=== PATIENT | female | born 2000 | race American Indian/Alaskan Native ===

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

== ENCOUNTER 2021-02-16 13:40 | Emergency (ER) | payer SELFPAY ==
[2021-02-16 13:47] VITALS: BP 100/50
--- NOTE | 2021-02-16 15:32 | Emergency Department Report ---
Chief Complaint: Abdominal Pain Stated Complaint: STOMACH PAINS VOMITING Time Seen by Provider: 02/16/21 15:24 - HPI History of Present Illness: 20-year-old female presents to the ER today requesting a checkup and also to check for COVID-19. Patient states that she woke up this morning and had one episode of bilious emesis. She states that she has a intermittent cough, but she states that she has had this cough for a long time. She states that she wanted to come get checked out because she lives with her boyfriend who lives with his mom is currently sick with cancer and he wanted to make sure her symptoms were not related to Covid. She also requesting a "checkup for STDs". Patient states that she is having some abdominal cramping but she states that the cramping is related to her menstrual cycle which she is currently on. She states that the cramping is not any different from her typical menstrual cycle related cramps. She denies any rhinorrhea, nasal congestion, fever, chills, generalized body aches, UTI symptoms, abnormal vaginal discharge, shortness of breath or wheezing. She states that she has not taken the COVID-19 vaccine. She denies any ill contacts or known COVID-19 contacts. - Exam Vital Signs: Vital Signs 02/16/21 13:46 Temperature 98.3 F Pulse Rate 74 Respiratory 16 Rate Blood Pressure 100/50 O2 Sat by Pulse 99 Oximetry MSE screening note: Focused history and physical exam performed. Due to findings the following was ordered: ED Medical Decision Making - Medical Decision Making 20-year-old female presents to the ER today requesting a checkup and also to check for COVID-19. Patient states that she woke up this morning and had one episode of bilious emesis. She states that she has a intermittent cough, but she states that she has had this cough for a long time. She states that she wanted to come get checked out because she lives with her boyfriend who lives with his mom is currently sick with cancer and he wanted to make sure her symptoms were not related to Covid. She also requesting a "checkup for STDs". Patient states that she is having some abdominal cramping but she states that the cramping is related to her menstrual cycle which she is currently on. She states that the cramping is not any different from her typical menstrual cycle related cramps. She denies any rhinorrhea, nasal congestion, fever, chills, generalized body aches, UTI symptoms, abnormal vaginal discharge, shortness of breath or wheezing. She states that she has not taken the COVID-19 vaccine. She denies any ill contacts or known COVID-19 contacts. 1535: Patient is well-appearing, nontoxic and not in any acute pain or respiratory distress. She appears well-hydrated. She is neurologically intact with a normal gait. Chest is clear to auscultation. She has a soft nontender abdomen. Her vital signs are stable. Informed patient that at this time I do not believe that her symptoms are related to COVID-19, but if there is absolute concern for recommend that she follows up with a local urgent care or pharmacy to get outpatient COVID-19 test. Also informed patient that she can follow-up with one of the urgent care to have department to get STD testing. Given patient history, physical exam and current condition, patient does not have a medical emergency requiring any em ergent testing or intervention at this time. Patient given discharge instructions, and a list of local clinics that she can follow-up with. Patient expressed understanding and agree with plan. Patient was stable at time of discharge. ED Disposition for MSE Clinical Impression: Vomiting, Chronic cough Disposition: - TO HOME OR SELFCARE Is pt being admited?: No Does the pt Need Aspirin: No Condition: Stable Instructions: Cough, Adult, [id number], Nausea and Vomiting, Adult, Abdominal Pain (ED) Additional Instructions: Take zofran as prescribed for nausea and vomiting. You can also take marlen, zyrtec or claritin and other over counter cough medications to help with cough. If there is high concern for covid, I recommend following up with local pharmacy or urgent care. Also you can follow up local health department for STD testing. Return to ED if symptoms changes or worsens, Prescriptions: Ondansetron [Zofran Odt] 4 mg PO Q8HR #12 tab.rapdis Referrals: PRIMARY CARE, [Primary Care Provider] - 3-5 Days Time of Disposition: 15:32 ED Review of Systems ROS: Stated complaint: STOMACH PAINS VOMITING Other details as noted in HPI Comment: All other systems reviewed and negative Constitutional: denies: chills, fever Eyes: denies: eye pain, eye discharge, vision change ENT: denies: ear pain, throat pain, dental pain, hearing loss, epistaxis, congestion Respiratory: cough. denies: orthopnea, SOB with exertion, SOB at rest, stridor, wheezing Gastrointestinal: abdominal pain. denies: nausea, vomiting, diarrhea, co nstipation, hematemesis, hematochezia Genitourinary: denies: urgency, dysuria, discharge Musculoskeletal: denies: back pain, joint swelling, arthralgia Skin: denies: rash, lesions, change in color, change in hair/nails, pruritus Neurological: denies: headache, weakness, numbness, paresthesias, confusion, abnormal gait, vertigo Psychiatric: denies: anxiety, depression, auditory hallucinations, visual hallucinations, homicidal thoughts, suicidal thoughts Hematological/Lymphatic: denies: easy bleeding, easy bruising, swollen glands ED Physical Exam - General Limitations: No Limitations General appearance: alert, in no apparent distress - Head Head exam: Present: atraumatic, normocephalic, normal inspection - Eye Eye exam: Present: normal appearance, PERRL, EOMI Pupils: Present: normal accommodation - ENT ENT exam: Present: normal exam, mucous membranes moist, TM's normal bilaterally - Neck Neck exam: Present: normal inspection, full ROM - Respiratory Respiratory exam: Present: normal lung sounds bilaterally. Absent: respiratory distress, wheezes, rales, rhonchi - Cardiovascular Cardiovascular Exam: Present: regular rate, normal rhythm, normal heart sounds - GI/Abdominal GI/Abdominal exam: Present: soft. Absent: distended, tenderness, guarding, rebound, rigid - Neurological Exam Neurological exam: Present: alert, oriented X3, CN II-XII intact, normal gait - Psychiatric Psychiatric exam: Present: normal affect, normal mood - Skin Skin exam: Present: intact
== END 2021-02-16 15:53 | disposition home or self-care (01) ==
LOC: ED 13:40
DX: R11.10 Vomiting, unspecified (principal); R05 Cough; G89.29 Other chronic pain
CPT/HCPCS: 99282